=== PATIENT | female | born 1970 | race Caucasian/White ===

== ENCOUNTER 2019-12-16 09:39 | Emergency (ER) | payer MEDICARE, MEDICAID, SELFPAY ==
[2019-12-16 09:49] VITALS: BMI 38.4
--- NOTE | 2019-12-16 09:49 | XR_ITS ---
WS: [id number] RIGHT KNEE: 3 VIEW(S) TECHNIQUE: AP, oblique(s) and lateral. HISTORY: injury/pain COMPARISON: None available. No fracture or dislocation. No joint space narrowing or osteophytes. No joint effusion. No soft tissue abnormality. XR/XR knee RT 3V* [id number] IMPRESSION: Normal RIGHT knee.
--- NOTE | 2019-12-16 09:49 | XR_ITS ---
WS: [id number] RIGHT ANKLE: 3 VIEW(S) TECHNIQUE: AP, oblique(s) and lateral. HISTORY: fall/pain COMPARISON: None available. Normal anatomic alignment with no fracture or dislocation. No joint effusion or widening of the ankle mortise. Moderate amount of degenerative changes in the midfoot at the tarsometatarsal joint. There is a moderate amount soft tissue edema surrounding the ankle. XR/XR ankle RT min 3V* [id number] IMPRESSION: 1. Moderate soft tissue edema. No fracture is identified. 2. Advanced degenerative changes at the tarsometatarsal joint line. These find ings are probably chronic and not related to the acute injury. If there is pain in the mid foot consider foot radiographs.
--- NOTE | 2019-12-16 09:49 | W.ED.LOWEXIN ---
HPI - Extremity Injury (Lower) General: Chief Complaint: Extremity Injury, Lower Stated Complaint: FALL, KNEE/ANKLE PAIN Time Seen by Provider: 12/16/19 09:39 Source: patient Mode of arrival: ambulatory Limitations: no limitations History of Present Illness: HPI Narrative: Patient is a 49-year-old female who presents to ED today with complaints of right knee and right ankle pain after she slipped on a wet surface and fell. Patient was able to get up and walk to the couch and then take a nap after the fall but after she awoke from her nap she tried to walk and noticed pain in her right lower leg. MD complaint: knee injury and ankle injury Onset (ago): hour(s) Injury: Right: knee and ankle Place: home Severity: mild Relieving factors: immobilization Exacerbating factors: weight bearing, movement and palpation Context: fall Review of Systems Const: Denies: fever or chills Card: Denies: chest pain, palpitations, irregular heart rhythm, edema, lightheadedness, syncope or pre-syncope Resp: Denies: shortness of breath Musc: Reports: joint pain; Denies: neck pain or back pain Neuro: Denies: numbness in extremities, weakness in extremities or changes in sensation PFSH ED PFSH: Social History Smoking and tobacco status: current every day smoker Physical Exam Const: COMMON NORMALS: no apparent distress, oriented x3, no limitations and alert NUTRITIONAL APPEARANCE: obese morbidly obese Resp: COMMON NORMALS: normal respiratory effort and clear to auscultation bilaterally AUSCULTATION: clear to auscultation bilaterally Cardio: COMMON NORMALS: regular rate and regular rhythm RATE: regular rate RHYTHM: regular rhythm Extremity: OTHER: Small abrasion to anterior right knee. Patient maintains full range of motion. She complains of pain to her right ankle but again exhibits full range of motion. Neuro: COMMON NORMALS: oriented x3 SENSORIUM/ORIENTATION: Yes alert Course Vital Signs: Vital signs: Vital Signs Temperature 97.6 F 12/16/19 09:53 Pulse Rate 91 12/16/19 11:08 Respiratory Rate 22 H 12/16/19 11:08 Blood Pressure 172/96 12/16/19 11:08 Pulse Oximetry 96 12/16/19 11:08 MDM - Extremity Injury (Lower) MDM Narrative: Medical decision making narrative: Patient reports she cannot ambulate however she ambulated according to her own history just fine following the fall. Patient appears to have some cognitive delays-mother in the room with her confirms this. She is asking for crutches to be sent home with. During her ED stay she was seen ambulating to the bathroom without assistance. Imaging Data^: R knee XR: Radiologist's impression: [address] [place] [address] XRay Report Signed Patient: Sandra Greenfield Unit #: [id number] : 1970 Age/Sex: 49 / F ADM Date: 12/16/19 Loc: ER Room/Bed: Attending Dr: Ordering Provider/Ordering MD: Yelena Villagran Date of Service: 12/16/19 Procedure(s): XR knee RT 3V* 25086 Accession Number(s): [id number] Report Number: [id number] WS: [id number] RIGHT KNEE: 3 VIEW(S) TECHNIQUE: AP, oblique(s) and lateral. HISTORY: injury/pain COMPARISON: None available. No fracture or dislocation. No joint space narrowing or osteophytes. No joint effusion. No soft tissue abnormality. XR/XR knee RT 3V* [id number] IMPRESSION: Normal RIGHT knee. Dictated By: Renetta Saab DO Signed By: Renetta Saab DO Signed Date/Time: 12/16/19 1026 DD/ 1024 R ankle XR: Radiologist's impression: [address] [place] [address] XRay Report Signed Patient: Sandra Greenfield Unit #: [id number] : 1970 Age/Sex: 49 / F ADM Date: 12/16/19 Loc: ER Room/Bed: Attending Dr: Ordering Provider/Ordering MD: Yelena Villagran Date of Service: 12/16/19 Procedure(s): XR ankle RT min 3V* 16979 Accession Number(s): [id number] Report Number: [id number] WS: [id number] RIGHT ANKLE: 3 VIEW(S) TECHNIQUE: AP, oblique(s) and lateral. HISTORY: fall/pain COMPARISON: None available. Normal anatomic alignment with no fracture or dislocation. No joint effusion or widening of the ankle mortise. Moderate amount of degenerative changes in the midfoot at the tarsometatarsal joint. There is a moderate amount soft tissue edema surrounding the ankle. XR/XR ankle RT min 3V* [id number] IMPRESSION: 1. Moderate soft tissue edema. No fracture is identified. 2. Advanced degenerative changes at the tarsometatarsal joint line. These findings are probably chronic and not related to the acute injury. If there is pain in the mid foot consider foot radiographs. Dictated By: Renetta Saab DO Signed By: Renetta Saab DO Signed Date/Time: 12/16/19 1024 DD/ 1022 Discharge Plan Discharge Patient Disposition: Home, Self-Care Clinical Impression: Abrasion of knee, right Qualifiers: Encounter type: initial encounter Qualified Code(s): S80.211A - Abrasion, right knee, initial encounter Condition: Stable Discharge Orders: Discharge Order (Routine); Ordered 12/16/19 Ordered By: Yelena Villagran Referrals: Coleman Amaro MD [Primary Care Provider] - Discharge Diet: Usual diet Discharge Activity: Increase activity as tolerated Patient Instructions: Contusion, Abrasion (ED), Knee Pain (ED) Discharge Date/Time: 12/16/19 11:14 Coding Level of Care Code ED Cash Applications Analyst for Milind Salas
[2019-12-16 09:53] VITALS: BP 179/104; PULSE 94; RESP 20; TEMP 36.4; O2SAT 92
--- NOTE | 2019-12-16 10:54 | PC.NURSE ---
patient was able to walk to restroom without crutches
--- NOTE | 2019-12-16 11:07 | PC.NURSE ---
patient tried crutches then declined them stated she would go get a walker
[2019-12-16 11:08] VITALS: BP 172/96; PULSE 91; RESP 22; O2SAT 96
== END 2019-12-16 11:14 | disposition home or self-care (01) ==
PROVIDERS: Emergency Provider Physician Assistant; PCP Family Medicine
DX: S80.211A Abrasion, right knee, initial encounter (principal); F17.200 Nicotine dependence, unspecified, uncomplicated; E66.01 Morbid (severe) obesity due to excess calories; Z68.38 Body mass index [BMI] 38.0-38.9, adult; W01.0XXA Fall on same level from slipping, tripping and stumbling without subsequent striking against object, initial encounter; Y92.009 Unspecified place in unspecified non-institutional (private) residence as the place of occurrence of the external cause
CPT/HCPCS: 12345; 73562; 73610; 99282; 99283

== ENCOUNTER 2020-02-13 16:09 | Outpatient (CLI) | payer MEDICARE, SELFPAY ==
--- NOTE | 2020-02-13 16:19 | USCV_ITS ---
Sandra Greenfield Age: 49 Gender: F : 1970 Exam Date: 02/13/2020 16:30 Ordering Phys: Juni Hammond NP Technologist: Shanna Nick [place] [facility] [place] RT LEG PAIN AND EDEMA HISTORY: Lower extremity pain. PROCEDURES: Examined were the right greater saphenous, common femoral, femoral, profunda, popliteal, posterior tibial veins, and peroneal trunk.. FINDINGS: DVT noted in the RIGHT CFV, FV, Pop V, and Fatou v. SVT noted in RIGHT GSV. CONCLUSIONS Acute expansile DVT right CFV, FV, and popliteal veins, extending into peroneal vein. Superficial thrombus right GSV Prelim results called to Dr. Gamez's Nurse Hannah. Dr. Gamez instructed to take pt to ER, at time of exam. Mihir Vasquez MD (Electronically Signed) Final Date: 13 Feb 2020 17:11 S
== END 2020-02-13 16:10 | disposition home or self-care (01) ==
LOC: RAD 16:14
PROVIDERS: Visit Provider Family Medicine
DX: M79.604 Pain in right leg (principal); I82.401 Acute embolism and thrombosis of unspecified deep veins of right lower extremity
CPT/HCPCS: 93971

== ENCOUNTER 2020-02-13 16:49 | Emergency (ER) | payer MEDICARE, MEDICAID, SELFPAY ==
[2020-02-13 16:54] VITALS: BP 111/85; PULSE 98; RESP 18; TEMP 36.9; O2SAT 95; BMI 40.6
[2020-02-13 17:36] VITALS: RESP 16
--- NOTE | 2020-02-13 17:40 | W.ED.EXTPRO ---
HPI - Extremity Problem General: Chief complaint: Extremity Problem,Nontraumatic Stated complaint: DVT RIGHT LEG Time Seen by Provider: 02/13/20 17:33 History of Present Illness: HPI Narrative: Patient was sent to the emergency department by primary care after having a positive ultrasound of the right lower extremity for a DVT. Review of the ultrasound report notes a expansile DVT to the right CFV, FV, and popliteal veins extending into the peroneal vein. Also a superficial thrombus of the GSV. Dr. Gamez referred patient to come to the emergency room for further treatment and evaluation. Patient reports chronic history of COPD. Patient states about 2 weeks ago she hurt her leg and since that time it has not improved and seems to have gotten red and tender. Patient appears well. Patient appears in no acute distress. Review of Systems General: Reports: 10 or more systems reviewed and unremarkable except in HPI and below Musc: Reports: extremity swelling and redness [facility] ED PFSH: Social History Smoking and tobacco status: current every day smoker Female Reproductive History: Date of last menstrual period: 12/09/19 Physical Exam Const: COMMON NORMALS: no apparent distress and oriented x3 GENERAL APPEARANCE: cooperative HENMT: COMMON NORMALS: normocephalic, TM's normal bilaterally and external nose normal HEAD & SCALP: normal to inspection and normocephalic NOSE: external nose normal TYMPANIC MEMBRANE: TM's normal bilaterally MOUTH: oral and palatal mucosa normal THROAT: posterior oropharynx normal Eye: GENERAL EYE: normal appearance of both eyes Neck/C-Spine: COMMON NORMALS: full ROM Lymph: LYMPHATIC: no lymphadenopathy noted Chest: COMMONS NORMALS: inspection of chest normal Resp: COMMON NORMALS: normal respiratory effort EFFORT & INSPECTION: Yes able to speak in complete sentences Cardio: COMMON NORMALS: regular rate and regular rhythm RATE: regular rate RHYTHM: regular rhythm GI: COMMON NORMALS: non-tender : COMMON NORMALS: Yes no CVA tenderness BLADDER/KIDNEY EXAM: Yes no CVA tenderness Back/Pelvis: COMMON NORMALS: no CVA tenderness and thoracic and lumbar spine normal to inspection Extremity: GENERAL: Yes edema OTHER: Redness and swelling is noted to the right lower extremity. Edema expands up into the mid thigh. Pulses are intact. Prompt capillary refill is noted distally. Neuro: COMMON NORMALS: oriented x3 and moves all extremities Psych: COMMON NORMALS: mental status grossly normal and cooperative Skin: COMMON NORMALS: no rashes or lesions noted GENERAL SKIN EXAM: no rashes or lesions noted Course Vital Signs: Vital signs: Vital Signs Temperature 98.4 F 02/13/20 16:54 Pulse Rate 98 02/13/20 16:54 Respiratory Rate 16 02/13/20 17:36 Blood Pressure 111/85 02/13/20 16:54 Pulse Oximetry 95 02/13/20 16:54 MDM - Extremity (Nontraumatic) MDM Narrative: Medical decision making narrative: Patient was sent here by primary care for positive DVT ultrasound of the right lower extremity. Exam notes some redness and swelling to the right lower extremity starting about the mid thigh. Pulses are noted distally. Prompt capillary refill is noted. Laboratory values were drawn PT PTT, CBC, and CMP were all unremarkable except for some mild renal insufficiency at 1.3 creatinine. Ultrasound report was reviewed from earlier today from outpatient. Reviewed exam with patient recommendations for treatment with apixaban. Patient was written prescription and started on medication in the emergency department. Patient was recommended to follow-up with primary care or return to the ER as needed. Lab Data: Labs: Lab Results 02/13/20 02/13/20 02/13/20 Range/Units 17:56 17:56 17:56 WBC 7.7 (4.0-10.0) 10^3/ uL RBC 4.72 (4.1-5.3) 10^6/u L Hgb 14.5 (11.5-15.3) g/dL Hct 47.3 H (37.0-47.0) % MCV 100.2 H (81-99) fL MCH 30.7 (28.0-34.0) pg MCHC 30.7 (30.0-36.0) g/dL RDW 16.7 H (12.1-15.1) % Plt Count 233 (130-400) 10^3/c mm MPV 9.2 (7.4-10.4) fL Neut % (Auto) 53.5 % Lymph % (Auto) 37.3 % Gates % (Auto) 6.3 % Eos % (Auto) 2.1 % Baso % (Auto) 0.5 % Neut # (Auto) 4.1 (1.8-7.7) 10^3/u L Lymph # (Auto) 2.9 (0.8-4.8) 10^3/u L Gates # (Auto) 0.5 (0.2-0.9) 10^3/u L Eos # (Auto) 0.2 (0.0-0.8) 10^3/u L Baso # (Auto) 0.0 (0.0-0.1) 10^3/u L Nucleated RBC % (a uto) 0 % Nucleated RBCs # 0.0 /100WBC PT 12.60 (10.5-13.3) SECO NDS INR 0.92 (0.8-1.2) APTT 29.3 (23.9-36.7) SECO NDS Sodium 138 (136-145) mmol/L Potassium 3.8 (3.5-5.1) mmol/L Chloride 99 (98-107) mmol/L Carbon Dioxide 25 (22-29) mmol/L Anion Gap 17.8 (5-19) BUN 12 (6-20) mg/dL Creatinine 1.3 H (0.5-0.9) mg/dL GFR Calculation 43.7 L (90-130) mL/min Glucose 118 H (65-115) mg/dL Calculated Osmolal ity 283 L (285-295) mOsm/k g Calcium 9.3 (8.5-10.5) mg/dL Total Bilirubin 0.4 (0.15-1.2) mg/dL AST 19 (0-32) U/L ALT 11 (0-33) U/L Alkaline Phosphata se 115 H (35-105) IU/L Total Protein 7.9 (6.6-8.7) g/dL Albumin 3.8 (3.5-5.2) g/dL Globulin 4.1 (1.3-4.6) g/dL HCG, Qual (Negative) 02/13/20 Range/Units 17:56 WBC (4.0-10.0) 10^3/ uL RBC (4.1-5.3) 10^6/u L Hgb (11.5-15.3) g/dL Hct (37.0-47.0) % MCV (81-99) fL MCH (28.0-34.0) pg MCHC (30.0-36.0) g/dL RDW (12.1-15.1) % Plt Count (130-400) 10^3/c mm MPV (7.4-10.4) fL Neut % (Auto) % Lymph % (Auto) % Gates % (Auto) % Eos % (Auto) % Baso % (Auto) % Neut # (Auto) (1.8-7.7) 10^3/u L Lymph # (Auto) (0.8-4.8) 10^3/u L Gates # (Auto) (0.2-0.9) 10^3/u L Eos # (Auto) (0.0-0.8) 10^3/u L Baso # (Auto) (0.0-0.1) 10^3/u L Nucleated RBC % (a uto) % Nucleated RBCs # /100WBC PT (10.5-13.3) SECO NDS INR (0.8-1.2) APTT (23.9-36.7) SECO NDS Sodium (136-145) mmol/L Potassium (3.5-5.1) mmol/L Chloride (98-107) mmol/L Carbon Dioxide (22-29) mmol/L Anion Gap (5-19) BUN (6-20) mg/dL Creatinine (0.5-0.9) mg/dL GFR Calculation (90-130) mL/min Glucose (65-115) mg/dL Calculated Osmolal ity (285-295) mOsm/k g Calcium (8.5-10.5) mg/dL Total Bilirubin (0.15-1.2) mg/dL AST (0-32) U/L ALT (0-33) U/L Alkaline Phosphata se (35-105) IU/L Total Protein (6.6-8.7) g/dL Albumin (3.5-5.2) g/dL Globulin (1.3-4.6) g/dL HCG, Qual Negative (Negative) Discharge Plan Discharge Patient Disposition: Home, Self-Care Clinical Impression: Deep vein thrombosis of lower extremity Qualifiers: Affected thrombotic vein of extremity: unspecified vein of extremity Chronicity: acute Laterality: right Qualified Code(s): I82.401 - Acute embolism and thrombosis of unspecified deep veins of right lower extremity Condition: Stable Prescriptions: New apixaban 5 mg (74 tabs) tablets,dose pack See Rx Instructions .ROUTE .COMPLEX Qty: 74 RF: 0 Discharge Orders: Discharge Order (Routine); Ordered 02/13/20 Ordered By: Will Keen Discharge Diet: Usual diet Discharge Activity: Increase activity as tolerated Patient Instructions: Deep Venous Thrombosis (ED) Activity Restrictions/Additional Instructions: Home and rest. Activity as tolerated. Drink plenty of water with medications. Use acetaminophen as needed for pain. Follow-up with primary care in 1 week for recheck. Return to the ER for chest pain or increased difficulty breathing. Coding Level of Care Code ED Rn Medical Inpatient Services for Milind Fwd Exam Comprehensive
[2020-02-13 18:07] LABS: Basophils % 0.5 %; Eosinophils # 0.2 10^3/uL (0.0-0.8); Eosinophils % 2.1 %; Hematocrit 47.3 % (37.0-47.0); Hemoglobin 14.5 g/dL (11.5-15.3); Lymphocytes # 2.9 10^3/uL (0.8-4.8); Lymphocytes % 37.3 %; Mean Corpuscular HGB Conc 30.7 g/dL (30.0-36.0); Mean Corpuscular Hemoglobin 30.7 pg (28.0-34.0); Mean Corpuscular Volume 100.2 fL (81-99); Mean Platelet Volume 9.2 fL (7.4-10.4); Monocytes # 0.5 10^3/uL (0.2-0.9); Monocytes % 6.3 %; Neutrophils # 4.1 10^3/uL (1.8-7.7); Neutrophils % 53.5 %; Nucleated Red Blood Cells % 0 %; Platelet Count 233 10^3/cmm (130-400); Red Blood Count 4.72 10^6/uL (4.1-5.3); Red Cell Distribution Width 16.7 % (12.1-15.1); White Blood Count 7.7 10^3/uL (4.0-10.0)
[2020-02-13 18:16] LABS: INR 0.92 (0.8-1.2); Partial Thromboplastin Time 29.3 SECONDS (23.9-36.7)
[2020-02-13 18:20] LABS: HCG, Serum Qual Negative (Negative)
[2020-02-13 18:22] LABS: Alanine Aminotransferase 11 U/L (0-33); Albumin Level 3.8 g/dL (3.5-5.2); Alkaline Phosphatase 115 IU/L (35-105); Anion Gap 17.8 (5-19); Aspartate Amino Transferase 19 U/L (0-32); Blood Urea Nitrogen 12 mg/dL (6-20); Calcium 9.3 mg/dL (8.5-10.5); Carbon Dioxide 25 mmol/L (22-29); Chloride 99 mmol/L (98-107); Globulin 4.1 g/dL (1.3-4.6); Glomerular Filtration Rate 43.7 mL/min (90-130); Glucose 118 mg/dL (65-115); Osmolality Calculated 283 mOsm/kg (285-295); Potassium 3.8 mmol/L (3.5-5.1); Sodium 138 mmol/L (136-145); Total Bilirubin 0.4 mg/dL (0.15-1.2); Total Protein 7.9 g/dL (6.6-8.7)
[2020-02-13] MEDS: apixaban 5 mg Tablet 10 MG PO (18:50)
[2020-02-13 18:52] VITALS: PULSE 81; RESP 16; O2SAT 98
== END 2020-02-13 18:53 | disposition home or self-care (01) ==
LOC: ER 18:33
PROVIDERS: Emergency Provider Nurse Practitioner Family
DX: I82.401 Acute embolism and thrombosis of unspecified deep veins of right lower extremity (principal); F17.210 Nicotine dependence, cigarettes, uncomplicated; M79.604 Pain in right leg
CPT/HCPCS: 12345; 36415; 80053; 84703; 85025; 85610; 85730; 93971; 99281; 99283

== ENCOUNTER → 2020-04-29 10:00 | Outpatient (BNVA) | payer MEDICARE, MEDICAID, SELFPAY | PROVIDERS: Visit Provider Specialist | DX: G56.23 Lesion of ulnar nerve, bilateral upper limbs (principal); M25.522 Pain in left elbow; R20.0 Anesthesia of skin; R20.2 Paresthesia of skin; M79.601 Pain in right arm; M79.602 Pain in left arm | CPT/HCPCS: 95910 ==

== ENCOUNTER 2020-10-26 15:42 | Emergency (ER) | payer MEDICARE, MEDICAID, SELFPAY ==
[2020-10-26] VITALS (18 sets, daily range): BP systolic 91–142; BP diastolic 64–103; PULSE 100–117; RESP 16–53; O2SAT 72–98; BMI 47.3
--- NOTE | 2020-10-26 16:07 | XRR_ITS ---
PROCEDURE INFORMATION: Exam: XR Chest, 1 View Exam date and time: 10/26/2020 5:18 PM Age: 50 years old Clinical indication: Dyspnea and shortness of breath TECHNIQUE: Imaging protocol: XR of the chest Views: 1 view. COMPARISON: CT angio chest PE protcl [id number] 10/26/2020 4:59 PM FINDINGS: Lungs: Suspected mild left basilar atelectasis.. Overlying soft tissue limits this exam. Pleural space: Unremarkable. No pleural effusion. No pneumothorax. Heart/Mediastinum: Cardiomegaly. Bones/joints: Unremarkable. XR/XR chest 1V portable [id number] IMPRESSION: . Cardiomegaly. Mild vascular congestion.. Suspected mild left basilar atelectasis.. Overlying soft tissue limits this exam.
--- NOTE | 2020-10-26 16:10 | ECG_ITS ---
[facility] Test Date: 2020-10-26 Pat Name: Sandra Greenfield Department: Room: Gender: Female Medical Center Director: : 1970 Requested By: Jed Bañuelos Order Number: [id number] Silvia MD: Tali Herrera M.D. Measurements Intervals [place] Rate: 118 P: 56 TN: 116 QRS: 114 QRSD: 100 T: -26 QT: 340 QTc: 477 Interpretive Statements SINUS TACHYCARDIA WITH SHORT TN INTERVAL POSSIBLE LEFT ATRIAL ENLARGEMENT [-0.1mV P WAVE IN V1/V2] POSSIBLE RIGHT VENTRICULAR HYPERTROPHY [SOME/ALL OF: PROMINENT R IN V1, LATE TRANSITION, RAD, ARNAUD, SSS] NONSPECIFIC ST & T-WAVE ABNORMALITY No previous ECG available for comparison Electronically Signed On 10-26-2020 18:48:20 TALENT ACQUISITION MANAGER by Tali Herrera M.D. [email or web address]
--- NOTE | 2020-10-26 16:17 | USCV_ITS ---
Sandra Greenfield Age: 50 Gender: F : 1970 Exam Date: 10/26/2020 17:22 Ordering Phys: Jed Bañuelos MD Technologist: Eloina Stephens [place] [facility] [place]: KNOWN DVT, SOB HISTORY: ON PLAVIX SEVERAL MONTHS FOR DVT PROCEDURES: Venous duplex imaging was performed in bilateral lower extremities. The following venous structures were evaluated: common femoral vein, profunda vein, proximal portion of the greater saphenous vein, superficial femoral vein, and the popliteal vein. In addition, the posterior tibial and peroneal trunk were evaluated. FINDINGS: No evidence of ACUTE dvt. Images suggest chronic bilateral old clot. Echo-free space in the subcutaneous tissue bilaterally below the knee The veins were found to be easily compressible with spontaneous blood flow. The ____ veins were found to be non/partially compressible. CONCLUSIONS No evidence of DVT in the above-mentioned identifiable veins. Features of fluid retention/edema of both lower extremities. Dr Tali Herrera MD FAC (Electronically Signed) Final Date: 26 October 2020 18:37 S
--- NOTE | 2020-10-26 16:18 | CTR_ITS ---
PROCEDURE INFORMATION: Exam: CT Angiography Chest With Contrast Exam date and time: 10/26/2020 4:20 PM Age: 50 years old Clinical indication: Shortness of breath; Additional info: Dyspnea, rle swelling TECHNIQUE: Imaging protocol: Computed tomographic angiography of the chest with intravenous contrast. 3D rendering (Not supervised by radiologist): MIP and/or 3D reconstructed images were created by the technologist. Radiation optimization: All CT scans at this facility use at least one of these dose optimization techniques: automated exposure control; mA and/or kV adjustment per patient size (includes targeted exams where dose is matched to clinical indication); or iterative reconstruction. Contrast material: OMNI 350; Contrast volume: 95 ml; Contrast route: INTRAVENOUS (IV); COMPARISON: No relevant prior studies available. RADIATION DOSE METRICS: Total DLP (mGy-cm): 534.79 FINDINGS: Limitations: The study is made with less than full inspiration. Pulmonary arteries: Pulmonary artery is moderately dilated suggesting pulmonary hypertension. There is no evidence of filling defects within the pulmonary arterial circulation to suggest pulmonary embolism. Aorta: Unremarkable. No aortic aneurysm. No aortic dissection. Lungs: There is some subsegmental atelectasis in the left upper lobe there is also some partial atelectasis in the left lower lobe. Mosaic attenuation in the lungs is likely the result of hypoventilation and mild gas trapping. Pleural space: Unremarkable. No pneumothorax. No pleural effusion. Heart: The heart is moderately enlarged. Lymph nodes: Unremarkable. No enlarged lymph nodes. Adrenals: There is a 34 x 25 mm indeterminate right adrenal mass. Comparison with prior imaging studies is suggested. Follow-up with adrenal CT scan is recommended if no previous imaging is available. Bones/joints: Unremarkable. No acute fracture. Soft tissues: Unremarkable. CT/CT angio chest PE protcl [id number] IMPRESSION: 1. No evidence of pulmonary embolism. 2. Findings suggesting pulmonary hypertension. 3. Indeterminate right adrenal mass. Comparison with prior examinations, or further evaluation suggested. Radiation Dose CTDIVOL = (mGy): DLP = 534.79 (mGy-cm)
[2020-10-26 16:20] LABS: ABG PCO2 67.8 mmHg (35-45); ABG PH Result 7.29 (7.35-7.45); Arterial Blood Gas Hematocrit 50.3 % (37-47); Blood Gas Allen Test Pos; Blood Gas Operator Identificat glc; Blood Gas Sample Site Radial, left; Blood Gas Sample Type Arterial; Carboxyhemoglobin 11.7 %THgb (0.4-20.1); HCO3 ABG 32.2 mmol/L (22-26); HGB O2 Sat 82.4 % (95-100); Methemoglobin 0.6 % (0.4-1.5); Oxygen Device NC; PO2 ABG 66.9 mmHg (80.0-100.0); Total Hemoglobin 16.4 g/dL (12-16)
[2020-10-26] MEDS: ipratropium-albuterol 3 mL Neb INHALATION (16:29)
[2020-10-26 16:30] LABS: Basophils % 0.4 %; Eosinophils # 0.1 10^3/uL (0.0-0.8); Eosinophils % 0.9 %; Hematocrit 59.1 % (37.0-47.0); Hemoglobin 16.1 g/dL (11.5-15.3); Lymphocytes # 2.3 10^3/uL (0.8-4.8); Lymphocytes % 22.3 %; Mean Corpuscular HGB Conc 27.2 g/dL (30.0-36.0); Mean Corpuscular Hemoglobin 26.2 pg (28.0-34.0); Mean Corpuscular Volume 96.1 fL (81-99); Mean Platelet Volume 9.8 fL (7.4-10.4); Monocytes # 0.6 10^3/uL (0.2-0.9); Monocytes % 5.6 %; Neutrophils # 7.21 10^3/uL (1.8-7.7); Neutrophils % 70.6 %; Nucleated Red Blood Cells % 0 %; Platelet Count 187 10^3/cmm (130-400); Red Blood Count 6.15 10^6/uL (4.1-5.3); Red Cell Distribution Width 19.8 % (12.1-15.1); White Blood Count 10.2 10^3/uL (4.0-10.0)
[2020-10-26] MEDS: iohexol 350 mg/mL 100 mL Btl IV (17:22)
--- NOTE | 2020-10-26 17:25 | W.ED.SOB ---
HPI - SOB/Dyspnea General: Chief Complaint: Shortness of Breath/Dyspnea Stated Complaint: DIFF BREATHING (76% O2 @ DR JHAVERI) Time Seen by Provider: 10/26/20 16:07 History of Present Illness: HPI Narrative: The patient is a 50-year-old female who comes to the ER severely short of breath satting 70% on room air, tachypneic, tachycardic, and in moderate respiratory distress. She is unable to give any history on arrival and does not answer questions appropriately. She was placed on a nonrebreather which improved her saturation to the low 90s though still in aspiratory distress. BiPAP was brought quickly and improved. Review of Systems General: Reports: ROS unobtainable due to medical condition PFSH ED PFSH: Social History Smoking and tobacco status: current every day smoker Female Reproductive History: Date of last menstrual period: 12/09/19 Physical Exam Narrative: EXAM NARRATIVE: She is morbidly obese. She has significant peripheral edema 2+ in her lower right extremity. She has swelling to her face and eyelids. She is in moderate respiratory distress then progressed to severe respiratory distress became tired and was intubated Const: EXAM LIMITATIONS: altered mental status GENERAL APPEARANCE: in distress and ill appearing NUTRITIONAL APPEARANCE: obese ORIENTATION/CONSCIOUSNESS: Yes awake, Yes oriented to person, Yes oriented to place and Yes confused HENMT: COMMON NORMALS: normocephalic and Normal external nose present HEAD & SCALP: normocephalic NOSE: Normal external nose present MOUTH: other (No teeth.) OTHER: Significant facial edema to her eyelids Eye: COMMON NORMALS: Equal, round and reactive pupils present, EOMs intact bilaterally and conjunctivae normal GENERAL EYE: other (Edema to her eyelids) CONJUNCTIVA: Yes conjunctivae normal PUPIL: Yes Equal, round and reactive pupils present Neck/C-Spine: COMMON NORMALS: full ROM and no meningeal signs GENERAL: Yes normal visual inspection Lymph: LYMPHATIC: no lymphedema noted Chest: COMMONS NORMALS: normal inspection of the chest and normal palpation of entire chest wall Resp: EFFORT & INSPECTION: Yes tachypneic, Yes respiratory distress (Moderate then later severe respiratory distress), Yes decreased respiratory effort, Yes labored, Yes retractions and Yes paradoxical thoraco-abdominal movements AUSCULTATION: diminished lung sounds Cardio: COMMON NORMALS: regular rhythm RATE: tachycardic RHYTHM: regular rhythm GI: COMMON NORMALS: Normal to inspection, nondistended, normoactive bowel sounds present, Soft to palpation, non-tender and no masses PALPATION: Yes Soft to palpation : COMMON NORMALS: Yes no CVA tenderness, Yes normal external appearance and Yes normal appearance of the vagina BLADDER/KIDNEY EXAM: Yes no CVA tenderness Back/Pelvis: COMMON NORMALS: no CVA tenderness Extremity: COMMON NORMALS: normal to inspection, full ROM and no joint enlargement Neuro: SENSORIUM/ORIENTATION: Yes oriented to person and Yes oriented to place MENINGEAL SIGNS: Yes no meningeal signs MOTOR EXAM: 5/5 motor strength present throughout Psych: COMMON NORMALS: mental status grossly normal Skin: COMMON NORMALS: no rashes or lesions noted and turgor normal GENERAL SKIN EXAM: no rashes or lesions noted and turgor normal Course Vital Signs: Vital signs: Vital Signs Pulse Rate 106 H 10/26/20 21:44 Respiratory Rate 16 10/26/20 21:44 Blood Pressure 121/64 10/26/20 21:44 Pulse Oximetry 97 10/26/20 21:44 MDM - SOB/Dyspnea MDM Narrative: Medical decision making narrative: The patient came in satting 70% on room air in respiratory distress. She was placed on 6 L nasal cannula oxygen which increased her to 90% however she remained in respiratory distress. BiPAP was called very early which did help her. Her ABG however worsened and her CO2 increased and pH decreased. She has acute hypoxic hypercapnic respiratory failure. She was intubated using propofol on the first attempt with an 8 oh ET tube placed 21 cm at the gumline(no teeth). Her oxygenation and ventilation improved as well did her ABG pH. CO2 lowered as well. She was given propofol and fentanyl drip which stabilized her on the vent and her pressure maintained well. We have no ICU beds available here for likely 24 hours and the decision was made to transfer her. No air transport available [facility] has no beds available[facility] accepted her and i spoke with commercial floor covering installer Dr. Coello who will see her when she arrives. EMS arrived and she was transported and left the ER in stable condition. Also her proBNP was severely elevated and she was given Lasix in the ER. She has chronic COPD which is also a contributing factor as well as her severe morbid obesity Differential Diagnosis: Shortness of Breath Differential Diagnosis: Likely acute exacerbation of chronic obstructive airways disease Lab Data: Labs: Lab Results 10/26/20 10/26/20 10/26/20 Range/Units 15:58 15:58 15:58 WBC 10.2 H (4.0-10.0) 10^3/ uL RBC 6.15 H (4.1-5.3) 10^6/u L Hgb 16.1 H (11.5-15.3) g/dL Hct 59.1 H (37.0-47.0) % MCV 96.1 (81-99) fL MCH 26.2 L (28.0-34.0) pg MCHC 27.2 L (30.0-36.0) g/dL RDW 19.8 H (12.1-15.1) % Plt Count 187 (130-400) 10^3/c mm MPV 9.8 (7.4-10.4) fL Neut % (Auto) 70.6 % Lymph % (Auto) 22.3 % [place] % (Auto) 5.6 % Eos % (Auto) 0.9 % Baso % (Auto) 0.4 % Neut # (Auto) 7.21 (1.8-7.7) 10^3/u L Lymph # (Auto) 2.3 (0.8-4.8) 10^3/u L [place] # (Auto) 0.6 (0.2-0.9) 10^3/u L Eos # (Auto) 0.1 (0.0-0.8) 10^3/u L Baso # (Auto) 0.0 (0.0-0.1) 10^3/u L Nucleated RBC % (a uto) 0 % Nucleated RBCs # 0.0 /100WBC Specimen Type Sample Site ABG pH (7.35-7.45) ABG pCO2 (35-45) mmHg ABG pO2 (80.0-100.0) mmH g ABG HCO3 (22-26) mmol/L ABG O2 Saturation ABG Base Excess (-2.0-2.0) mmol/ L Akshat Test A-a O2 Gradient (5-10) mmHg Hematocrit (37-47) % Hgb O2 Saturation (95-100) % Carboxyhemoglobin (0.4-20.1) %THgb Methemoglobin (0.4-1.5) % Total Hemoglobin (12-16) g/dL Ionized Calcium (1.1-1.4) mmol/L O2 Delivery Device O2 Liters/Min % FiO2 % Emergency Manager ID Sodium Cancelled Potassium Cancelled Chloride Cancelled Carbon Dioxide Cancelled Anion Gap Cancelled BUN Cancelled Creatinine Cancelled GFR Calculation Cancelled Glucose Cancelled Calculated Osmolal ity Cancelled Lactic Acid 2.0 (0.5-2.2) mmol/L Calcium Cancelled Total Bilirubin Cancelled AST Cancelled ALT Cancelled Alkaline Phosphata se Cancelled Troponin T Baselin e Troponin T 120 Min [place] (0-10) ng/L Delta Troponin T (0-10) ABS# NT-Pro-B Natriuret Pep Cancelled Total Protein Cancelled Albumin Cancelled Globulin Cancelled HCG, Qual (Negative) Urine Color (Yellow) Urine Appearance (CLEAR) Urine pH (5-7) Ur Specific Gravit y (1.005-1.030) Urine Protein (Negative) Urine Glucose (UA) (Normal) Urine Ketones (Negative) Urine Blood (Negative) Urine Nitrate (Negative) Urine Bilirubin (Negative) Prot Sulfosalicyli c Acd (Negative) Urine Urobilinogen (Negative) mg/dL Ur Leukocyte Xi ase (Negative) Urine RBC (0-2) /hpf Urine WBC (0-5) /hpf Ur Squamous Epith Cells (0-5) /hpf Amorphous Sediment /hpf Urine Bacteria (NONE) /hpf Influenza Type A A g (Negative) Influenza Type B A g (Negative) SARS-CoV-2 Ag (Rap id) (Negative) 10/26/20 10/26/20 10/26/20 Range/Units 15:58 16:09 17:42 WBC (4.0-10.0) 10^3/ uL RBC (4.1-5.3) 10^6/u L Hgb (11.5-15.3) g/dL Hct (37.0-47.0) % MCV (81-99) fL MCH (28.0-34.0) pg MCHC (30.0-36.0) g/dL RDW (12.1-15.1) % Plt Count (130-400) 10^3/c mm MPV (7.4-10.4) fL Neut % (Auto) % Lymph % (Auto) % [place] % (Auto) % Eos % (Auto) % Baso % (Auto) % Neut # (Auto) (1.8-7.7) 10^3/u L Lymph # (Auto) (0.8-4.8) 10^3/u L [place] # (Auto) (0.2-0.9) 10^3/u L Eos # (Auto) (0.0-0.8) 10^3/u L Baso # (Auto) (0.0-0.1) 10^3/u L Nucleated RBC % (a uto) % Nucleated RBCs # /100WBC Specimen Type Arterial Sample Site Radial, left ABG pH 7.29 L (7.35-7.45) ABG pCO2 67.8 H* (35-45) mmHg ABG pO2 66.9 L (80.0-100.0) mmH g ABG HCO3 32.2 H (22-26) mmol/L ABG O2 Saturation ABG Base Excess 3.0 H (-2.0-2.0) mmol/ L Akshat Test Pos A-a O2 Gradient (5-10) mmHg Hematocrit 50.3 H (37-47) % Hgb O2 Saturation 82.4 L (95-100) % Carboxyhemoglobin 11.7 (0.4-20.1) %THgb Methemoglobin 0.6 (0.4-1.5) % Total Hemoglobin 16.4 H (12-16) g/dL Ionized Calcium (1.1-1.4) mmol/L O2 Delivery Device Nc O2 Liters/Min 6.0 % FiO2 48.0 % Emergency Manager ID glc Sodium Potassium Chloride Carbon Dioxide Anion Gap BUN Creatinine GFR Calculation Glucose Calculated Osmolal ity Lactic Acid (0.5-2.2) mmol/L Calcium Total Bilirubin AST ALT Alkaline Phosphata se Troponin T Baselin e Cancelled Troponin T 120 Min [place] (0-10) ng/L Delta Troponin T (0-10) ABS# NT-Pro-B Natriuret Pep Total Protein Albumin Globulin HCG, Qual (Negative) Urine Color (Yellow) Urine Appearance (CLEAR) Urine pH (5-7) Ur Specific Gravit y (1.005-1.030) Urine Protein (Negative) Urine Glucose (UA) (Normal) Urine Ketones (Negative) Urine Blood (Negative) Urine Nitrate (Negative) Urine Bilirubin (Negative) Prot Sulfosalicyli c Acd (Negative) Urine Urobilinogen (Negative) mg/dL Ur Leukocyte Xi ase (Negative) Urine RBC (0-2) /hpf Urine WBC (0-5) /hpf Ur Squamous Epith Cells (0-5) /hpf Amorphous Sediment /hpf Urine Bacteria (NONE) /hpf Influenza Type A A g Negative (Negative) Influenza Type B A g Negative (Negative) SARS-CoV-2 Ag (Rap id) (Negative) 10/26/20 10/26/20 10/26/20 Range/Units 17:42 17:52 17:57 WBC (4.0-10.0) 10^3/ uL RBC (4.1-5.3) 10^6/u L Hgb (11.5-15.3) g/dL Hct (37.0-47.0) % MCV (81-99) fL MCH (28.0-34.0) pg MCHC (30.0-36.0) g/dL RDW (12.1-15.1) % Plt Count (130-400) 10^3/c mm MPV (7.4-10.4) fL Neut % (Auto) % Lymph % (Auto) % [place] % (Auto) % Eos % (Auto) % Baso % (Auto) % Neut # (Auto) (1.8-7.7) 10^3/u L Lymph # (Auto) (0.8-4.8) 10^3/u L [place] # (Auto) (0.2-0.9) 10^3/u L Eos # (Auto) (0.0-0.8) 10^3/u L Baso # (Auto) (0.0-0.1) 10^3/u L Nucleated RBC % (a uto) % Nucleated RBCs # /100WBC Specimen Type Arterial Sample Site Radial, left ABG pH 7.25 L (7.35-7.45) ABG pCO2 72.4 H* (35-45) mmHg ABG pO2 79.4 L (80.0-100.0) mmH g ABG HCO3 31.9 H (22-26) mmol/L ABG O2 Saturation 95.6 ABG Base Excess 2.0 (-2.0-2.0) mmol/ L Akshat Test Pos A-a O2 Gradient 20.1 H (5-10) mmHg Hematocrit 49.7 H (37-47) % Hgb O2 Saturation 85.4 L (95-100) % Carboxyhemoglobin 10.0 (0.4-20.1) %THgb Methemoglobin 0.6 (0.4-1.5) % Total Hemoglobin 16.2 H (12-16) g/dL Ionized Calcium 1.2 (1.1-1.4) mmol/L O2 Delivery Device Bipap O2 Liters/Min % FiO2 45.0 % Emergency Manager ID Amh Sodium 141.0 Potassium 4.6 Chloride Carbon Dioxide Anion Gap BUN Creatinine GFR Calculation Glucose 129.0 H Calculated Osmolal ity Lactic Acid (0.5-2.2) mmol/L Calcium Total Bilirubin AST ALT Alkaline Phosphata se Troponin T Baselin e Troponin T 120 Min [place] 18.23 H (0-10) ng/L Delta Troponin T 0.23 (0-10) ABS# NT-Pro-B Natriuret Pep Total Protein Albumin Globulin HCG, Qual (Negative) Urine Color (Yellow) Urine Appearance (CLEAR) Urine pH (5-7) Ur Specific Gravit y (1.005-1.030) Urine Protein (Negative) Urine Glucose (UA) (Normal) Urine Ketones (Negative) Urine Blood (Negative) Urine Nitrate (Negative) Urine Bilirubin (Negative) Prot Sulfosalicyli c Acd (Negative) Urine Urobilinogen (Negative) mg/dL Ur Leukocyte Xi ase (Negative) Urine RBC (0-2) /hpf Urine WBC (0-5) /hpf Ur Squamous Epith Cells (0-5) /hpf Amorphous Sediment /hpf Urine Bacteria (NONE) /hpf Influenza Type A A g (Negative) Influenza Type B A g (Negative) SARS-CoV-2 Ag (Rap id) Negative (Negative) 10/26/20 10/26/20 10/26/20 Range/Units 19:48 20:00 20:00 WBC (4.0-10.0) 10^3/ uL RBC (4.1-5.3) 10^6/u L Hgb (11.5-15.3) g/dL Hct (37.0-47.0) % MCV (81-99) fL MCH (28.0-34.0) pg MCHC (30.0-36.0) g/dL RDW (12.1-15.1) % Plt Count (130-400) 10^3/c mm MPV (7.4-10.4) fL Neut % (Auto) % Lymph % (Auto) % [place] % (Auto) % Eos % (Auto) % Baso % (Auto) % Neut # (Auto) (1.8-7.7) 10^3/u L Lymph # (Auto) (0.8-4.8) 10^3/u L [place] # (Auto) (0.2-0.9) 10^3/u L Eos # (Auto) (0.0-0.8) 10^3/u L Baso # (Auto) (0.0-0.1) 10^3/u L Nucleated RBC % (a uto) % Nucleated RBCs # /100WBC Specimen Type Sample Site ABG pH (7.35-7.45) ABG pCO2 (35-45) mmHg ABG pO2 (80.0-100.0) mmH g ABG HCO3 (22-26) mmol/L ABG O2 Saturation ABG Base Excess (-2.0-2.0) mmol/ L Akshat Test A-a O2 Gradient (5-10) mmHg Hematocrit (37-47) % Hgb O2 Saturation (95-100) % Carboxyhemoglobin (0.4-20.1) %THgb Methemoglobin (0.4-1.5) % Total Hemoglobin (12-16) g/dL Ionized Calcium (1.1-1.4) mmol/L O2 Delivery Device O2 Liters/Min % FiO2 % Emergency Manager ID Sodium 137 Potassium 4.5 Chloride 100 Carbon Dioxide 29 Anion Gap 12.5 BUN 13 Creatinine 1.1 H GFR Calculation 52.8 L Glucose 116 H Calculated Osmolal ity 285 Lactic Acid (0.5-2.2) mmol/L Calcium 8.5 Total Bilirubin 0.7 AST 19 ALT 11 Alkaline Phosphata se 123 H Troponin T Baselin e 21 H Troponin T 120 Min [place] (0-10) ng/L Delta Troponin T (0-10) ABS# NT-Pro-B Natriuret Pep 3555 H Total Protein 6.3 L Albumin 2.9 L Globulin 3.4 HCG, Qual Negative (Negative) Urine Color (Yellow) Urine Appearance (CLEAR) Urine pH (5-7) Ur Specific Gravit y (1.005-1.030) Urine Protein (Negative) Urine Glucose (UA) (Normal) Urine Ketones (Negative) Urine Blood (Negative) Urine Nitrate (Negative) Urine Bilirubin (Negative) Prot Sulfosalicyli c Acd (Negative) Urine Urobilinogen (Negative) mg/dL Ur Leukocyte Xi ase (Negative) Urine RBC (0-2) /hpf Urine WBC (0-5) /hpf Ur Squamous Epith Cells (0-5) /hpf Amorphous Sediment /hpf Urine Bacteria (NONE) /hpf Influenza Type A A g (Negative) Influenza Type B A g (Negative) SARS-CoV-2 Ag (Rap id) (Negative) 10/26/20 Range/Units Unknown WBC (4.0-10.0) 10^3/ uL RBC (4.1-5.3) 10^6/u L Hgb (11.5-15.3) g/dL Hct (37.0-47.0) % MCV (81-99) fL MCH (28.0-34.0) pg MCHC (30.0-36.0) g/dL RDW (12.1-15.1) % Plt Count (130-400) 10^3/c mm MPV (7.4-10.4) fL Neut % (Auto) % Lymph % (Auto) % [place] % (Auto) % Eos % (Auto) % Baso % (Auto) % Neut # (Auto) (1.8-7.7) 10^3/u L Lymph # (Auto) (0.8-4.8) 10^3/u L [place] # (Auto) (0.2-0.9) 10^3/u L Eos # (Auto) (0.0-0.8) 10^3/u L Baso # (Auto) (0.0-0.1) 10^3/u L Nucleated RBC % (a uto) % Nucleated RBCs # /100WBC Specimen Type Sample Site ABG pH (7.35-7.45) ABG pCO2 (35-45) mmHg ABG pO2 (80.0-100.0) mmH g ABG HCO3 (22-26) mmol/L ABG O2 Saturation ABG Base Excess (-2.0-2.0) mmol/ L Akshat Test A-a O2 Gradient (5-10) mmHg Hematocrit (37-47) % Hgb O2 Saturation (95-100) % Carboxyhemoglobin (0.4-20.1) %THgb Methemoglobin (0.4-1.5) % Total Hemoglobin (12-16) g/dL Ionized Calcium (1.1-1.4) mmol/L O2 Delivery Device O2 Liters/Min % FiO2 % Emergency Manager ID Sodium Potassium Chloride Carbon Dioxide Anion Gap BUN Creatinine GFR Calculation Glucose Calculated Osmolal ity Lactic Acid (0.5-2.2) mmol/L Calcium Total Bilirubin AST ALT Alkaline Phosphata se Troponin T Baselin e Troponin T 120 Min [place] (0-10) ng/L Delta Troponin T (0-10) ABS# NT-Pro-B Natriuret Pep Total Protein Albumin Globulin HCG, Qual (Negative) Urine Color Yellow (Yellow) Urine Appearance Cloudy (CLEAR) Urine pH 9 H (5-7) Ur Specific Gravit y 1.010 (1.005-1.030) Urine Protein 2+ H (Negative) Urine Glucose (UA) Norm (Normal) Urine Ketones Negative (Negative) Urine Blood 2+ H (Negative) Urine Nitrate Negative (Negative) Urine Bilirubin Neg (Negative) Prot Sulfosalicyli c Acd Positive (Negative) Urine Urobilinogen Norm (Negative) mg/dL Ur Leukocyte Xi ase Negative (Negative) Urine RBC 5-10 H (0-2) /hpf Urine WBC 0-4 H (0-5) /hpf Ur Squamous Epith Cells 0-4 H (0-5) /hpf Amorphous Sediment 3+ /hpf Urine Bacteria 2+ H (NONE) /hpf Influenza Type A A g (Negative) Influenza Type B A g (Negative) SARS-CoV-2 Ag (Rap id) (Negative) Critical Care Time Critical Care Time: Critical Care Time: Yes Total Critical Care Time: 120 Attestation: Respiratory distress, intubation, management and titration of sedative drips and arranging transfer to another facility Discharge Plan Discharge Patient Disposition: Xfer Other Condition: Critical Referrals: Hailey Jhaveri MD [Primary Care Provider] - Coding Level of Care Code ED Receiving Specialist for Chg Josue
[2020-10-26 18:04] LABS: ABG PH Result 7.25 (7.35-7.45); Alveolar-Arterial Oxygen Gradi 20.1 mmHg (5-10); Arterial Blood Gas Hematocrit 49.7 % (37-47); Blood Gas Allen Test Pos; Blood Gas Operator Identificat AMH; Blood Gas Sample Site Radial, left; Blood Gas Sample Type Arterial; HCO3 ABG 31.9 mmol/L (22-26); HGB O2 Sat 85.4 % (95-100); Ionized Calcium Level - ABG 1.2 mmol/L (1.1-1.4); Methemoglobin 0.6 % (0.4-1.5); Oxygen Device BIPAP; Oxygen Saturation ABG 95.6; PO2 ABG 79.4 mmHg (80.0-100.0); Potassium Level - ABG 4.6 mmol/L (3.5-5.0); Total Hemoglobin 16.2 g/dL (12-16)
[2020-10-26 18:05] LABS: ABG PCO2 72.4 mmHg (35-45)
[2020-10-26 18:21] LABS: SARS Covid-2 Antigen Negative (Negative)
[2020-10-26 18:34] LABS: Influenza A by IFA Negative (Negative); Influenza B by IFA Negative (Negative)
[2020-10-26 18:36] LABS: Troponin 5 2HR 18.23 ng/L (0-10); Troponin 5 2HR Delta 0.23 ABS# (0-10)
[2020-10-26] MEDS: propofol 1,000 MG/100 ML INJ 21.1 MG IV (18:47)
[2020-10-26] MEDS: succinylcholine 20 mg/mL SDV 10mL 100 MG IVP (19:13)
[2020-10-26] MEDS: rocuronium 10 mg/mL INJ 5mL 20 MG IV (19:14)
[2020-10-26] MEDS: midazolam 1 mg/mL INJ 2 mL 6 MG (19:36)
[2020-10-26] MEDS: fentaNYL 50 mcg/mL INJ 2mL IVP (19:44)
[2020-10-26 20:26] LABS: HCG, Serum Qual Negative (Negative)
[2020-10-26 20:35] LABS: Bilirubin Urine Neg (Negative); Blood Urine 2+ (Negative); Glucose Urine UA Norm (Normal); Ketones Urine Negative (Negative); Leukocyte Esterase Urine Negative (Negative); Nitrate Urine Negative (Negative); Protein Urine 2+ (Negative); Sulfosalicylic Acid Urine Positive (Negative); Urine Appearance Cloudy (CLEAR); Urine Color Yellow (Yellow); Urobilinogen Urine Norm (Negative); pH Urine 9 (5-7)
[2020-10-26 20:35] LABS: Troponin(5th) Baseline 21 ng/L (0-10)
[2020-10-26 20:46] LABS: Squamous Epithelial Cell Urine 0-4 /hpf (0-5); WBC Urine 0-4 /hpf (0-5)
[2020-10-26 20:47] LABS: Add Urine Culture? Yes; Amorphous Sediment Urine 3+ /hpf; Bacteria Urine 2+ /hpf
[2020-10-26 20:48] LABS: Alanine Aminotransferase 11 U/L (0-33); Albumin Level 2.9 g/dL (3.5-5.2); Alkaline Phosphatase 123 IU/L (35-105); Aspartate Amino Transferase 19 U/L (0-32); Blood Urea Nitrogen 13 mg/dL (6-20); Calcium 8.5 mg/dL (8.5-10.5); Carbon Dioxide 29 mmol/L (22-29); Chloride 100 mmol/L (98-107); Globulin 3.4 g/dL (1.3-4.6); Glomerular Filtration Rate 52.8 mL/min (90-130); Glucose 116 mg/dL (65-115); NT Pro B Type Natriuretic Pept 3555 pg/mL (0-125); Osmolality Calculated 285 mOsm/kg (285-295); Sodium 137 mmol/L (136-145); Total Bilirubin 0.7 mg/dL (0.15-1.2); Total Protein 6.3 g/dL (6.6-8.7)
[2020-10-26 21:00] LABS: Anion Gap 12.5 (5-19); Potassium 4.5 mmol/L (3.5-5.1)
[2020-10-26] MEDS: FUROsemide 10 mg/mL SDV 4mL 40 MG IVP (21:40)
[2020-10-26] MEDS: propofol 1,000 MG/100 ML INJ 24.7 MG IV (21:41)
[2020-10-26] MEDS: fentaNYL 50 mcg/mL INJ 2mL 100 MCG IVP (21:49)
== END 2020-10-26 21:53 | disposition other institution (70) ==
PROVIDERS: Emergency Provider Family Medicine; PCP Family Medicine
DX: R06.03 Acute respiratory distress (principal); F17.210 Nicotine dependence, cigarettes, uncomplicated
CPT/HCPCS: 12345; 31500; 36415; 36600; 51702; 71045; 71275; 80051; 80053; 81001; 82330; 82805; 83605; 83880; 84484; 84703; 85025; 87070; 87086; 87186; 87205; 87426; 87804; 93005; 93970; 94002; 94640; 94660; 94799; 96365; 96366; 96375; 99283; 99291; J0330; J1940; J2250; J2704; J3010; J3490; Q9967